=== PATIENT | female | born 1990 | race Caucasian/White ===

== ENCOUNTER → 2017-03-12 | Outpatient (CLI) | payer MEDICAID, OTHER ==
[2017-03-12 11:31] LABS: ABSOLUTE EOSINOPHILS # (AUTO) 0.1 10^3/uL (0.0-0.6); ABSOLUTE LYMPHOCYTES (AUTO) 1.8 10^3/uL (0.5-4.7); ABSOLUTE MONOCYTES (AUTO) 0.5 10^3/uL (0.1-1.4); ABSOLUTE NEUT (AUTO) 7.5 10^3/uL (1.7-8.2); BASOPHILS % (AUTO) 0.3 % (0-2); EOSINOPHILS % (AUTO) 1.1 % (0-6); HEMATOCRIT 39.1 % (36.0-47.0); HEMOGLOBIN 13.4 g/dL (12.0-15.5); HGB HCT DIFFERENCE 1.1; LYMPHOCYTES % (AUTO) 17.9 % (13-45); MEAN CORPUSCULAR HEMOGLOBIN 29.4 pg (27.0-33.4); MEAN CORPUSCULAR HGB CONC 34.2 g/dL (32.0-36.0); MEAN CORPUSCULAR VOLUME 86 fl (80-97); MONOCYTES % (AUTO) 5.3 % (3-13); RED BLOOD COUNT 4.55 10^6/uL (3.72-5.28); RED CELL DISTRIBUTION WIDTH 13.7 % (11.5-14.0); SEGMENTED NEUTROPHILS % (AUTO) 75.4 % (42-78)
[2017-03-12 11:51] LABS: ALANINE AMINOTRANSFERASE 54 U/L (9-52); ALBUMIN 4.2 g/dL (3.5-5.0); ALKALINE PHOSPHATASE 92 U/L (38-126); ANION GAP 16 (5-19); ASPARTATE AMINO TRANSFERASE 26 U/L (14-36); BILIRUBIN,DIRECT 0.3 mg/dL (0.0-0.4); BILIRUBIN,TOTAL 0.5 mg/dL (0.2-1.3); BLOOD UREA NITROGEN 10 mg/dL (7-20); CALCIUM 9.4 mg/dL (8.4-10.2); CARBON DIOXIDE 24 mmol/L (22-30); CHLORIDE 105 mmol/L (98-107); CHOLESTEROL 151.43 mg/dL (0-200); CREATININE RESULT 0.61 mg/dL (0.52-1.25); Direct HDL 37 mg/dL (>40); GLUCOSE 75 mg/dL (75-110); POTASSIUM 4.5 mmol/L (3.6-5.0); SODIUM 144.7 mmol/L (137-145); TOTAL PROTEIN 7.5 g/dL (6.3-8.2); TRIGLYCERIDES 110 mg/dL (<150)
[2017-03-12 12:02] LABS: DIRECT LDL 94 mg/dL (<100)
== END ==
LOC: OD 09:13
PROVIDERS: ATTEND Family Medicine
DX: J02.9 Acute pharyngitis, unspecified (principal); R03.0 Elevated blood-pressure reading, without diagnosis of hypertension; Q28.9 Congenital malformation of circulatory system, unspecified
CPT/HCPCS: 36415; 80053; 80061; 84443; 85025; 86308

== ENCOUNTER → 2017-07-08 | Outpatient (CLI) | payer MEDICAID ==
--- NOTE | 2017-07-08 17:18 | RADIOLOGY REPORT (SQ) ---
EXAM DESCRIPTION: FINGERS RIGHT COMPLETED DATE/TIME: 07/08/2017 5:05 pm REASON FOR STUDY: CRUSHING INJURY OF RIGHT INDEX FINGER, INITIAL ENCOUNTER S67.190A CRUSHING INJURY OF RIGHT INDEX FINGER, INITIAL ENCO COMPARISON: None. NUMBER OF VIEWS: Three views. TECHNIQUE: AP, lateral, and oblique images acquired of the right second finger. LIMITATIONS: None. FINDINGS: MINERALIZATION: Normal. BONES: No acute fracture or dislocation. No worrisome bone lesions. SOFT TISSUES: There is soft tissue swelling in the index finger. OTHER: No other significant finding. IMPRESSION: Soft tissue swelling with no fracture. COMMENT: SITE OF TRAUMA/COMPLAINT MARKED/STAMP COMPLETED: YES. TECHNICAL DOCUMENTATION: JOB ID: [id number] [employer]- All Rights Reserved Reading location - IP/workstation name: [email or web address]
== END ==
LOC: OD 16:51
PROVIDERS: ATTEND Nurse Practitioner Acute Care
DX: S67.190A Crushing injury of right index finger, initial encounter (principal); X58.XXXA Exposure to other specified factors, initial encounter

== ENCOUNTER → 2019-02-08 | Outpatient (CLI) | payer MEDICAID | LOC: LAB 16:34 | PROVIDERS: ATTEND Nurse Practitioner Family | DX: R69 Illness, unspecified (principal) | CPT/HCPCS: 87070 ==